=== PATIENT | male | born 1960 | race Caucasian/White ===

== ENCOUNTER 2017-02-25 10:55 | Emergency (ER) | payer BC ==
[~2017-02-25] VITALS: Ht 195.5 cm; Wt 113.4 kg
[~2017-02-25 10:55] MED LIST: AUGMENTIN 875875 MG PO; CORDROL20 MG PO; ECOTRIN325 M1 PO; JANTOVEN5 MG; KENALOG0.1% TP; LEVAQUIN750 M1 PO; LEVOFLOXACIN500 MG PO; LOPRESSOR25 MG PO; MEDROL DOSEPAK4 MG PO; MEGARED OMEGA-1 EAC1 PO; PERCOCET 325 MG1 TA2 PO; PRILOSEC20 M1 PO; TOBREX OPHTH S2.5 ML OPH; VENTOLIN H0.09 MG/AC INH; VISTARIL50 MG PO; ZITHROMAX Z PA250 MG PO; [UNRECOGNIZED DRUG - OTHER]
[2017-02-25] MEDS ORDERED: AMOXICILLIN500 M2 PO (11:41)
[2017-02-25] MEDS ORDERED: ZYRTEC10 MG PO (11:41)
== END 2017-02-25 11:52 | disposition home or self-care (01) ==
LOC: ED 10:55
DX: J01.90 Acute sinusitis, unspecified (principal); Z88.2 Allergy status to sulfonamides

== ENCOUNTER 2017-09-10 13:24 | Emergency (ER) | payer BC ==
[~2017-09-10] VITALS: Ht 193 cm; Wt 113.4 kg
[~2017-09-10 13:24] MED LIST changes: +AMOXICILLIN500 M2 PO; +ZYRTEC10 MG PO
[2017-09-10] MEDS ORDERED: FLONASE ALLERG9.9 ML NAS (15:57)
[2017-09-10] MEDS ORDERED: ZYRTEC10 MG PO (15:57)
[2017-09-10] MEDS ORDERED: DELTASONE20 M1 PO (15:57)
== END 2017-09-10 16:00 | disposition home or self-care (01) ==
LOC: ED 13:24
DX: J40 Bronchitis, not specified as acute or chronic (principal); Z79.899 Other long term (current) drug therapy; Z79.82 Long term (current) use of aspirin; Z88.2 Allergy status to sulfonamides

== ENCOUNTER 2021-06-03 07:06 | Emergency (ER) | payer BC ==
[~2021-06-03] VITALS: Ht 193 cm; Wt 113.4 kg
[~2021-06-03 07:06] MED LIST changes: +DELTASONE20 M1 PO; +FLONASE ALLERG9.9 ML NAS
[2021-06-04] MEDS ORDERED: MEDI-MECLIZINE25 MG PO (20:09)
== END 2021-06-03 08:28 | disposition home or self-care (01) ==
LOC: ED 07:06
DX: S39.011A Strain of muscle, fascia and tendon of abdomen, initial encounter (principal); M54.42 Lumbago with sciatica, left side; Z88.2 Allergy status to sulfonamides; Z79.899 Other long term (current) drug therapy; Z79.82 Long term (current) use of aspirin; X58.XXXA Exposure to other specified factors, initial encounter; Y93.89 Activity, other specified; Y92.89 Other specified places as the place of occurrence of the external cause; Y99.8 Other external cause status

== ENCOUNTER 2021-06-04 19:25 | Emergency (ER) | payer BC ==
[2021-06-04] MEDS ORDERED: MEDI-MECLIZINE25 MG PO (20:09)
== END 2021-06-04 20:20 | disposition home or self-care (01) ==
LOC: ED 19:25
DX: R42 Dizziness and giddiness (principal); R11.0 Nausea; Z88.2 Allergy status to sulfonamides; Z79.82 Long term (current) use of aspirin; Z79.899 Other long term (current) drug therapy; Z96.652 Presence of left artificial knee joint

== ENCOUNTER 2022-03-08 16:32 | Emergency (ER) | payer BC ==
[~2022-03-08] VITALS: Ht 195.5 cm; Wt 113.4 kg
[~2022-03-08 16:32] MED LIST changes: +MEDI-MECLIZINE25 MG PO
[2022-03-08] MEDS ORDERED: AMOX-CLAV 875-1 EACH PO (18:35)
== END 2022-03-08 19:01 | disposition home or self-care (01) ==
LOC: ED 16:32
DX: J32.8 Other chronic sinusitis (principal); K02.9 Dental caries, unspecified; M54.2 Cervicalgia; Z88.2 Allergy status to sulfonamides; Z79.82 Long term (current) use of aspirin; Z79.899 Other long term (current) drug therapy

== ENCOUNTER 2022-06-07 09:11 | Emergency (ER) | payer BC ==
[~2022-06-07] VITALS: Ht 195.5 cm; Wt 113.4 kg
[~2022-06-07 09:11] MED LIST changes: +AMOX-CLAV 875-1 EACH PO
[2022-06-07 09:47] LABS: BASO # 0.1 10*3/uL (0.0-0.1); EOS # 0.1 10*3/uL (0.0-0.4); EOS % 1.3 % (1.0-4.0); HEMATOCRIT 48.4 % (42.0-52.0); LYMPH # 2.2 10*3/uL (1.3-4.4); LYMPH % 30.1 % (27.0-41.0); MEAN CELL VOLUME 86.3 fl (80.0-94.0); MEAN CORPUSCULAR HGB 29.9 pg (27.0-31.0); MEAN CORPUSCULAR HGB CONC 34.7 g/dl (33.0-37.0); MEAN PLATELET VOLUME 9.3 fl (9.6-12.3); MONO # 0.7 10*3/uL (0.1-1.0); MONO % 9.7 % (3.0-9.0); NEUT # 4.1 10*3/uL (2.3-7.9); NEUT % 57.6 % (47.0-73.0); PLATELET COUNT AUTOMATED 227 10*3/uL (130-400); RED BLOOD COUNT 5.61 10*6/uL (4.50-5.90); RED CELL DISTRI WIDTH 12.4 % (0-14.5); WHITE BLOOD COUNT 7.1 10*3/uL (4.8-10.8)
[2022-06-07 09:58] LABS: ACT PARTIAL THROMBO TIME 26.9 SECONDS (20.0-32.1)
[2022-06-07 10:07] LABS: ALKALINE PHOSPHATASE 60 U/L (45-117); BUN 16 mg/dl (7-24); CHLORIDE 108 mmol/L (98-107); LIPASE 125 U/L (73-393); POTASSIUM 3.7 mmol/L (3.5-5.1); SGOT/AST 14 IU/L (3-35); SGPT/ALT 26 U/L (12-78); SODIUM 142 mmol/L (136-145); TOTAL PROTEIN 7.3 gm/dL (6.4-8.2)
== END 2022-06-07 12:44 | disposition home or self-care (01) ==
LOC: ED 09:11
PROVIDERS: Emergency Medicine
DX: R07.89 Other chest pain (principal); Z88.2 Allergy status to sulfonamides; Z79.899 Other long term (current) drug therapy; Z79.82 Long term (current) use of aspirin

== ENCOUNTER → 2022-06-28 | Outpatient (CLI) | payer BC ==
[2022-06-28 08:30] LABS: TOTAL PROTEIN 7.1 gm/dL (6.0-8.0)
== END | disposition home or self-care (01) ==
LOC: LAB 07:22
PROVIDERS: ATTEND Family Medicine
DX: Z12.5 Encounter for screening for malignant neoplasm of prostate (principal); E78.5 Hyperlipidemia, unspecified

== ENCOUNTER 2022-10-08 16:35 | Emergency (ER) | payer BC ==
[~2022-10-08 16:35] MED LIST changes: +PREDNISONE20 M1 PO; +ZITHROMAX250 MG PO
[2022-10-08] MEDS ORDERED: PROVENTIL HFA6.7 GM PO (17:06)
[2022-10-08] MEDS ORDERED: VIBRA-TAB100 MG PO (17:06)
[2022-10-08] MEDS ORDERED: PREDNISONE10 MG PO (17:06)
== END 2022-10-08 19:34 | disposition home or self-care (01) ==
LOC: ED 16:35
DX: J40 Bronchitis, not specified as acute or chronic (principal); I48.91 Unspecified atrial fibrillation; Z88.2 Allergy status to sulfonamides; Z79.899 Other long term (current) drug therapy; Z79.82 Long term (current) use of aspirin

== ENCOUNTER → 2023-01-01 | Outpatient (CLI) | payer BC ==
[~2023-01-01] MED LIST changes: +PREDNISONE10 MG PO; +PROVENTIL HFA6.7 GM PO; +VIBRA-TAB100 MG PO
[2023-01-01 08:47] LABS: BASO # 0.1 10*3/uL (0.0-0.1); BASO % 0.8 % (0.0-1.0); EOS # 0.3 10*3/uL (0.0-0.4); EOS % 3.3 % (1.0-4.0); HEMATOCRIT 49.7 % (42.0-52.0); LYMPH # 2.5 10*3/uL (1.3-4.4); LYMPH % 32.6 % (27.0-41.0); MEAN CELL VOLUME 90.7 fl (80.0-94.0); MEAN CORPUSCULAR HGB 30.5 pg (27.0-31.0); MEAN CORPUSCULAR HGB CONC 33.6 g/dl (33.0-37.0); MEAN PLATELET VOLUME 9.5 fl (9.6-12.3); MONO % 13.2 % (3.0-9.0); NEUT # 3.8 10*3/uL (2.3-7.9); NEUT % 49.6 % (47.0-73.0); PLATELET COUNT AUTOMATED 222 10*3/uL (130-400); RED BLOOD COUNT 5.48 10*6/uL (4.50-5.90); RED CELL DISTRI WIDTH 12.7 % (0-14.5); WHITE BLOOD COUNT 7.6 10*3/uL (4.8-10.8)
[2023-01-01 09:14] LABS: ALKALINE PHOSPHATASE 63 U/L (46-116); BUN 11 mg/dl (9-23); CHLORIDE 103 mmol/L (98-107); CHOLESTEROL 212 mg/dL (<200); LDL CHOLESTEROL 121 mg/dL (9-159); POTASSIUM 4.3 mmol/L (3.4-5.1); SGPT/ALT 31 U/L (10-49); TOTAL PROTEIN 7.1 gm/dL (6.0-8.0); TRIGLYCERIDES 194 mg/dl (<150)
== END | disposition home or self-care (01) ==
LOC: LAB 08:20
PROVIDERS: ATTEND Family Medicine
DX: Z12.5 Encounter for screening for malignant neoplasm of prostate (principal); Z00.00 Encounter for general adult medical examination without abnormal findings

== ENCOUNTER 2023-03-24 14:02 | Emergency (ER) | payer BC ==
[~2023-03-24] VITALS: Ht 195.5 cm; Wt 117.9 kg
[2023-03-24] MEDS ORDERED: TRAMADOL HCL50 MG PO (14:42)
[2023-03-24] MEDS ORDERED: AMOX-CLAV 875-1 EACH PO (14:42)
== END 2023-03-24 14:49 | disposition home or self-care (01) ==
LOC: ED 14:02
DX: S02.5XXA Fracture of tooth (traumatic), initial encounter for closed fracture (principal); K04.7 Periapical abscess without sinus; K08.89 Other specified disorders of teeth and supporting structures; I10 Essential (primary) hypertension; I48.91 Unspecified atrial fibrillation; Z88.2 Allergy status to sulfonamides; Z98.890 Other specified postprocedural states; X58.XXXA Exposure to other specified factors, initial encounter; Y93.89 Activity, other specified; Y92.89 Other specified places as the place of occurrence of the external cause; Y99.8 Other external cause status

== ENCOUNTER → 2023-08-14 | Outpatient (CLI) | payer BC ==
[~2023-08-14] MED LIST changes: +TRAMADOL HCL50 MG PO
[2023-08-14 07:27] LABS: BASO # 0.1 10*3/uL (0.0-0.1); BASO % 0.8 % (0.0-1.0); EOS # 0.2 10*3/uL (0.0-0.4); EOS % 2.9 % (1.0-4.0); HEMATOCRIT 51.1 % (42.0-52.0); LYMPH # 2.3 10*3/uL (1.3-4.4); LYMPH % 30.2 % (27.0-41.0); MEAN CELL VOLUME 89.5 fl (80.0-94.0); MEAN CORPUSCULAR HGB 29.6 pg (27.0-31.0); MEAN CORPUSCULAR HGB CONC 33.1 g/dl (33.0-37.0); MEAN PLATELET VOLUME 9.1 fl (9.6-12.3); MONO # 1.1 10*3/uL (0.1-1.0); MONO % 14.1 % (3.0-9.0); NEUT % 51.7 % (47.0-73.0); PLATELET COUNT AUTOMATED 240 10*3/uL (130-400); RED BLOOD COUNT 5.71 10*6/uL (4.50-5.90); RED CELL DISTRI WIDTH 12.8 % (0-14.5); WHITE BLOOD COUNT 7.7 10*3/uL (4.8-10.8)
[2023-08-14 08:24] LABS: ALKALINE PHOSPHATASE 58 U/L (46-116); BUN 12 mg/dl (9-23); CHLORIDE 107 mmol/L (98-107); POTASSIUM 4.1 mmol/L (3.4-5.1); SGPT/ALT 27 U/L (5-49); TOTAL PROTEIN 7.4 gm/dL (6.0-8.0)
== END | disposition home or self-care (01) ==
LOC: LAB 07:03
PROVIDERS: ATTEND Nurse Practitioner
DX: Z12.5 Encounter for screening for malignant neoplasm of prostate (principal); R55 Syncope and collapse; R68.89 Other general symptoms and signs

== ENCOUNTER 2023-09-15 13:23 | Emergency (ER) | payer BC ==
[~2023-09-15] VITALS: Ht 195.5 cm; Wt 117.9 kg
[2023-09-15 14:12] LABS: BASO # 0.1 10*3/uL (0.0-0.1); BASO % 0.9 % (0.0-1.0); EOS # 0.2 10*3/uL (0.0-0.4); EOS % 2.4 % (1.0-4.0); LYMPH # 2.3 10*3/uL (1.3-4.4); LYMPH % 24.6 % (27.0-41.0); MEAN CELL VOLUME 88.9 fl (80.0-94.0); MEAN CORPUSCULAR HGB 29.4 pg (27.0-31.0); MEAN CORPUSCULAR HGB CONC 33.1 g/dl (33.0-37.0); MEAN PLATELET VOLUME 9.3 fl (9.6-12.3); MONO # 1.1 10*3/uL (0.1-1.0); MONO % 11.6 % (3.0-9.0); NEUT # 5.6 10*3/uL (2.3-7.9); NEUT % 59.9 % (47.0-73.0); PLATELET COUNT AUTOMATED 259 10*3/uL (130-400); RED BLOOD COUNT 5.74 10*6/uL (4.50-5.90); RED CELL DISTRI WIDTH 12.9 % (0-14.5); WHITE BLOOD COUNT 9.3 10*3/uL (4.8-10.8)
[2023-09-15 14:23] LABS: ACT PARTIAL THROMBO TIME 27.3 SECONDS (20.0-32.1)
[2023-09-15 14:37] LABS: ALKALINE PHOSPHATASE 83 U/L (46-116); BUN 11 mg/dl (9-23); CHLORIDE 108 mmol/L (98-107); LIPASE 34 U/L (12-53); SGPT/ALT 50 U/L (5-49); TOTAL PROTEIN 7.5 gm/dL (6.0-8.0)
[2023-09-15] MEDS ORDERED: ZITHROMAX250 MG PO (15:17)
== END 2023-09-15 15:35 | disposition home or self-care (01) ==
LOC: ED 13:23
PROVIDERS: Internal Medicine
DX: J40 Bronchitis, not specified as acute or chronic (principal); I48.91 Unspecified atrial fibrillation; R10.2 Pelvic and perineal pain; F17.210 Nicotine dependence, cigarettes, uncomplicated; Z88.2 Allergy status to sulfonamides; Z98.890 Other specified postprocedural states; Z20.822 Contact with and (suspected) exposure to COVID-19

== ENCOUNTER 2023-09-28 02:54 | Emergency (ER) | payer BC ==
[2023-09-28] MEDS ORDERED: METHOCARBAMOL 750 MG TAB PO ONE (03:15)
[2023-09-28] MEDS ORDERED: methylPREDNISolone sod succ 125 MG VIAL IM ONE (03:15)
[2023-09-28] MEDS ORDERED: METHOCARBAMOL750 M1 PO (03:26)
== END 2023-09-28 03:35 | disposition home or self-care (01) ==
LOC: ED 02:54
DX: S29.012A Strain of muscle and tendon of back wall of thorax, initial encounter (principal); I48.91 Unspecified atrial fibrillation; Z88.2 Allergy status to sulfonamides; Z98.890 Other specified postprocedural states; X58.XXXA Exposure to other specified factors, initial encounter; Y93.89 Activity, other specified; Y92.009 Unspecified place in unspecified non-institutional (private) residence as the place of occurrence of the external cause; Y99.8 Other external cause status

== ENCOUNTER 2023-10-04 06:05 | Emergency (ER) | payer BC ==
[~2023-10-04] VITALS: Ht 195.5 cm; Wt 117.9 kg
[~2023-10-04 06:05] MED LIST changes: +METHOCARBAMOL750 M1 PO
[2023-10-04] MEDS ORDERED: Dexamethasone Sodium Phospha 20 MG/5 ML VIAL IM ONE (06:20)
[2023-10-04] MEDS ORDERED: Ketorolac Tromethamine 60 MG/2 ML VIAL IM ONE (06:20)
[2023-10-04] MEDS ORDERED: ZANAFLEX2 M1 PO (06:30)
== END 2023-10-04 06:35 | disposition home or self-care (01) ==
LOC: ED 06:05
DX: S29.012A Strain of muscle and tendon of back wall of thorax, initial encounter (principal); I48.91 Unspecified atrial fibrillation; Z88.2 Allergy status to sulfonamides; Z98.890 Other specified postprocedural states; X58.XXXA Exposure to other specified factors, initial encounter; Y93.89 Activity, other specified; Y92.89 Other specified places as the place of occurrence of the external cause; Y99.8 Other external cause status

== ENCOUNTER → 2024-01-22 | Outpatient (CLI) | payer BC ==
[~2024-01-22] MED LIST changes: +ZANAFLEX2 M1 PO
[2024-01-22 07:29] LABS: BASO # 0.1 10*3/uL (0.0-0.1); EOS # 0.2 10*3/uL (0.0-0.4); EOS % 2.3 % (1.0-4.0); HEMATOCRIT 49.3 % (42.0-52.0); LYMPH # 2.5 10*3/uL (1.3-4.4); LYMPH % 29.6 % (27.0-41.0); MEAN CELL VOLUME 89.6 fl (80.0-94.0); MEAN CORPUSCULAR HGB 30.2 pg (27.0-31.0); MEAN CORPUSCULAR HGB CONC 33.7 g/dl (33.0-37.0); MEAN PLATELET VOLUME 9.3 fl (9.6-12.3); MONO # 1.1 10*3/uL (0.1-1.0); MONO % 13.2 % (3.0-9.0); NEUT # 4.5 10*3/uL (2.3-7.9); NEUT % 53.5 % (47.0-73.0); PLATELET COUNT AUTOMATED 246 10*3/uL (130-400); RED CELL DISTRI WIDTH 12.4 % (0-14.5); WHITE BLOOD COUNT 8.4 10*3/uL (4.8-10.8)
[2024-01-22 07:58] LABS: ALKALINE PHOSPHATASE 61 U/L (46-116); BUN 13 mg/dl (9-23); CHLORIDE 106 mmol/L (98-107); CHOLESTEROL 199 mg/dL (<200); LDL CHOLESTEROL 125 mg/dL (9-159); POTASSIUM 3.9 mmol/L (3.4-5.1); SGPT/ALT 17 U/L (5-49); TOTAL PROTEIN 7.1 gm/dL (6.0-8.0); TRIGLYCERIDES 148 mg/dl (<150)
== END | disposition home or self-care (01) ==
LOC: LAB 07:07
PROVIDERS: ATTEND Family Medicine
DX: E78.5 Hyperlipidemia, unspecified (principal); R03.0 Elevated blood-pressure reading, without diagnosis of hypertension

== ENCOUNTER → 2024-09-28 | Outpatient (CLI) | payer BC ==
[~2024-09-28] MED LIST changes: +GABAPENTIN400 MG PO; +LEVOFLOXACIN750 M2 PO; +PANTOPRAZOLE SO40 MG PO; +TYLENOL EXTRA500 MG PO; +ZETIA10 MG PO
== END | disposition home or self-care (01) ==
LOC: RAD 08:59
PROVIDERS: ATTEND Pain Medicine Interventional Pain Medicine
DX: M25.852 Other specified joint disorders, left hip (principal); M25.851 Other specified joint disorders, right hip; M25.551 Pain in right hip; M25.552 Pain in left hip; M53.3 Sacrococcygeal disorders, not elsewhere classified

== ENCOUNTER 2025-07-20 11:45 | Emergency (ER) | payer BC ==
[~2025-07-20] VITALS: Ht 193 cm; Wt 117.9 kg
[2025-07-20 13:38] LABS: BASO # 0.1 10*3/uL (0.0-0.1); BASO % 0.9 % (0.0-1.0); EOS # 0.3 10*3/uL (0.0-0.4); EOS % 2.8 % (1.0-4.0); MEAN CELL VOLUME 89.9 fl (80.0-94.0); MEAN CORPUSCULAR HGB 29.6 pg (27.0-31.0); MEAN PLATELET VOLUME 9.3 fl (9.6-12.3); MONO # 1.5 10*3/uL (0.1-1.0); MONO % 13.3 % (3.0-9.0); NEUT # 6.7 10*3/uL (2.3-7.9); NEUT % 59.4 % (47.0-73.0); NUCLEATED RED BLOOD CELL 0.0 % (0.0-0.0); NUCLEATED RED BLOOD CELL 0.0 10*3/uL (0.0-0.0); PLATELET COUNT AUTOMATED 248 10*3/uL (130-400); RED CELL DISTRI WIDTH 12.9 % (0-14.5)
[2025-07-20 14:01] LABS: BUN 10 mg/dl (9-23)
[2025-07-20] MEDS ORDERED: ZITHROMAX250 MG PO (14:26)
[2025-07-20] MEDS ORDERED: MEDROL DOSEPAK4 MG PO (14:26)
[2025-07-20] MEDS ORDERED: AZITHROMYCIN 250 MG TAB PO ONE (14:30)
== END 2025-07-20 14:37 | disposition home or self-care (01) ==
LOC: ED 11:45
PROVIDERS: Nurse Practitioner Family
DX: Z88.2 Allergy status to sulfonamides (principal); J18.9 Pneumonia, unspecified organism